=== PATIENT | female | born 1950 | race Caucasian/White ===

== ENCOUNTER 2018-07-13 05:30 | Inpatient (IN) | payer MEDICARE, BC ==
[2018-07-13] MEDS ORDERED: SOD CHLORIDE 0.9% 100 ML, TRANEXAMIC ACID 3,000 MG IRR (06:00)
[2018-07-13] MEDS ORDERED: BUPIVACAINE 0.5% (SDV) 30 ML, morphine SULFATE (PF) 8 MG, EPINEPHrine 0.3 MG, KETOROLAC... IRR (06:00)
[2018-07-13] MEDS: VANCOMYCIN 1 GM (PMX) 250 ML IVPB (06:33)
[2018-07-13] MEDS: DEXAMETHASONE 1 MG TAB PO (06:33)
[2018-07-13] MEDS: GABAPENTIN 300 MG CAP PO ×3 (06:33→21:41)
[2018-07-13] MEDS ORDERED: PROPOFOL 20 ML (06:47)
[2018-07-13] MEDS ORDERED: PHENYLephrine (100 MCG/ML) 5ML SYG (06:48)
[2018-07-13] MEDS ORDERED: TRANEXAMIC ACID 1GM/100ML(PMX) 200 ML (06:51)
[2018-07-13] MEDS ORDERED: EPHEDrine 25 MG/5 ML SYG (07:00)
[2018-07-13] MEDS ORDERED: GLYCOPYRROLATE 0.4 MG INJ (07:00)
[2018-07-13] MEDS: TRANEXAMIC ACID 1GM/100ML(PMX) 100 ML IVPB (07:05)
[2018-07-13] MEDS ORDERED: CA CHLORIDE (GM) 10% 10 ML INJ (07:33)
[2018-07-13] MEDS ORDERED: THROMBIN 5000 UNIT VIAL (07:33)
[2018-07-13] MEDS: POLYMYXIN/BACITRACIN 1L IRRIG IRR (07:49)
[2018-07-13] MEDS ORDERED: ETOMIDATE 20 MG INJ (08:32)
[2018-07-13] MEDS ORDERED: KETOROLAC 30 MG INJ (08:33)
[2018-07-13] MEDS ORDERED: HYDROmorphONE 1 MG/ML SYG IV (09:00)
[2018-07-13] MEDS ORDERED: ZOLPIDEM 5 MG TAB PO (09:00)
[2018-07-13] MEDS ORDERED: DIPHENHYDRAMINE 50 MG INJ IV (09:00)
[2018-07-13] MEDS: ALBUTEROL HFA 8 GM INHALER INH ×2 (09:00→23:00)
[2018-07-13] MEDS ORDERED: oxyCODONE 5 MG TAB PO ×2 (09:00)
[2018-07-13] MEDS ORDERED: ONDANSETRON 4 MG INJ IV (09:00)
[2018-07-13] MEDS ORDERED: MAGNESIUM HYDROXIDE 30ML CUP PO (09:00)
[2018-07-13] MEDS ORDERED: LEVOTHYROXINE 25 MCG TAB PO (09:00)
[2018-07-13] MEDS ORDERED: NACL 0.9% 3 ML SYG IV (09:00)
[2018-07-13] MEDS: METOCLOPRAMIDE 10 MG INJ IV (09:19)
[2018-07-13 09:36] LABS: ADD MAN DIFF? NO
[2018-07-13 09:37] LABS: WHITE BLOOD COUNT 18.2 10^3/ul (4.8-10.8)
[2018-07-13 09:37] LABS: BASOPHIL # 0.1 10^3/ul (0.0-0.1); BASOPHILS % 0.3 % (0.0-2.0); EOSINOPHILS # 0.1 10^3/ul (0.0-0.5); EOSINOPHILS % 0.3 % (0.0-7.0); HEMATOCRIT 32.9 % (37.0-47.0); LYMPHOCYTES # 1.3 10^3/ul (0.8-2.9); LYMPHOCYTES % 7.2 % (15.0-51.0); MEAN CORPUSCULAR HEMOGLOBIN 31.6 pg (29.0-33.0); MEAN CORPUSCULAR HGB CONC 33.4 g/dl (32.0-37.0); MEAN CORPUSCULAR VOLUME 94.5 fl (82.0-101.0); MONOCYTE # 0.7 10^3/ul (0.3-0.9); MONOCYTES % 3.6 % (0.0-11.0); NEUTROPHILS % 87.8 % (39.0-77.0); PLATELET COUNT 256 10^3/UL (140-415); RED BLOOD COUNT 3.48 10^6/ul (4.20-5.40); RED CELL DISTRIBUTION WIDTH 12.3 % (11.5-14.5)
[2018-07-13] MEDS: ACETAMINOPHEN 1000MG/100ML IV 100 ML IVPB ×2 (09:45→17:28)
[2018-07-13] MEDS: ACETAMINOPHEN 325 MG TAB PO (09:46)
[2018-07-13 09:54] LABS: HOLD TRANSMISSIONS 1
[2018-07-13] MEDS ORDERED: ALBUMIN HUMAN 5% 250 ML ×2 (10:28)
[2018-07-13] MEDS: ALBUMIN HUMAN 5% 250 ML IV ×2 (10:41→11:43)
[2018-07-13] MEDS: DEXAMETHASONE 2 MG TAB PO ×2 (12:38→17:28)
[2018-07-13] MEDS: LACTATED RINGER'S 1,000 ML IV ×3 (12:38→23:26)
[2018-07-13] MEDS: VANCOMYCIN 500 MG (PMX) 100 ML IVPB (18:28)
[2018-07-13] MEDS: SENNA/DOCUSATE NA (8.6MG/50MG) TAB PO (21:40)
[2018-07-13] MEDS: FLECAINIDE 50 MG TAB PO (21:42)
[2018-07-13] MEDS: METOPROLOL (XL) 50 MG TAB PO (21:47)
[2018-07-13] MEDS ORDERED: FLUTICASONE/VILANTEROL 200-25 INH DEVICE INH (23:45)
[2018-07-14] MEDS: DEXAMETHASONE 2 MG TAB PO ×2 (00:53→06:25)
[2018-07-14] MEDS: ACETAMINOPHEN 1000MG/100ML IV 100 ML IVPB (00:53)
[2018-07-14 05:02] LABS: ADD MAN DIFF? NO
[2018-07-14 05:09] LABS: BASOPHILS % 0.1 % (0.0-2.0); HEMATOCRIT 31.4 % (37.0-47.0); HEMOGLOBIN 10.4 g/dl (12.0-16.0); LYMPHOCYTES # 1.4 10^3/ul (0.8-2.9); LYMPHOCYTES % 9.8 % (15.0-51.0); MEAN CORPUSCULAR HEMOGLOBIN 31.5 pg (29.0-33.0); MEAN CORPUSCULAR HGB CONC 33.1 g/dl (32.0-37.0); MEAN CORPUSCULAR VOLUME 95.2 fl (82.0-101.0); MEAN PLATELET VOLUME 9.8 fl (7.4-10.4); MONOCYTE # 1.1 10^3/ul (0.3-0.9); MONOCYTES % 7.8 % (0.0-11.0); NEUTROPHIL # 11.4 10^3/ul (1.6-7.5); NEUTROPHILS % 81.9 % (39.0-77.0); PLATELET COUNT 226 10^3/UL (140-415); RED CELL DISTRIBUTION WIDTH 12.7 % (11.5-14.5)
[2018-07-14] MEDS: FLUTICASONE/VILANTEROL 200-25 INH DEVICE INH (06:24)
[2018-07-14] MEDS: VANCOMYCIN 500 MG (PMX) 100 ML IVPB (06:24)
[2018-07-14] MEDS: LIOTHYRONINE 25 MCG TAB PO (07:55)
[2018-07-14] MEDS: SENNA/DOCUSATE NA (8.6MG/50MG) TAB PO (08:35)
[2018-07-14] MEDS: ASPIRIN (EC) 325 MG TAB PO (08:35)
[2018-07-14] MEDS: FLECAINIDE 50 MG TAB PO (08:36)
[2018-07-14] MEDS: METOPROLOL (XL) 50 MG TAB PO (08:37)
[2018-07-14] MEDS ORDERED: FLUTICASONE/VILANTEROL 200-25 INH DEVICE INH (09:00)
[2018-07-14] MEDS: oxyCODONE 5 MG TAB PO (09:49)
[2018-07-14] MEDS: ALBUTEROL HFA 8 GM INHALER INH (10:59)
[2018-07-15] MEDS ORDERED: MAGNESIUM HYDROXIDE 30ML CUP PO (21:00)
== END 2018-07-14 13:55 | disposition home or self-care (01) | DRG 470 ==
LOC: REC 05:30 → MS1 11:39
PROVIDERS: Orthopaedic Surgery
PROC: 0SR904A Replacement of Right Hip Joint with Ceramic on Polyethylene Synthetic Substitute, Uncemented, Open Approach (ICD-10-PCS; principal; 2018-07-13 07:00)
DX: M16.11 Unilateral primary osteoarthritis, right hip (principal); I49.9 Cardiac arrhythmia, unspecified; E03.9 Hypothyroidism, unspecified; J44.9 Chronic obstructive pulmonary disease, unspecified
CPT/HCPCS: 72170; 73530; 85025; 86999; 87086; 88304; 88311; 97161